=== PATIENT | male | born 1990 | race Caucasian/White ===

== ENCOUNTER 2018-01-23 15:09 | Emergency (ER) | END 2018-01-23 21:05 | disposition home or self-care (01) ==

== ENCOUNTER 2019-01-02 18:44 | Emergency (ER) | payer OTHER ==
[~2019-01-02] VITALS: Wt 69.5 kg
[~2019-01-02 18:44] MED LIST: CLON1TAB13 PO; LEVO500T48 PO; PROP20TA4 PO
[2019-01-02] MEDS ORDERED: ACETAMINOPHEN 325 MG TAB PO ONE (20:30)
--- NOTE | 2019-01-02 21:44 | ERD ---
ER Documentation Chief Complaint Chief Complaint RLQ AP, diarrhea x3wks. constant in nature. no surgical history. HPI 28-year-old male, presents the emergency department, complaining of 3 weeks with persistent right lower quadrant abdominal pain, associated with intermittent episodes with diarrhea, described as nonbloody, nonmucous, sometimes 3 times per day. The patient denies fever, no chills. The pain is described as colicky, intermittent, 4/10. ROS All systems reviewed and are negative except as per history of present illness. Medications Home Meds Active Scripts Acetaminophen* (Tylenol*) 325 Mg Tablet, 2 TAB PO Q6 PRN for PAIN AND OR ELEVATED TEMP, #20 TAB Prov:NICKO RIVAS MD 01/02/19 Ciprofloxacin Hcl* (Ciprofloxacin Hcl*) 250 Mg Tablet, 250 MG PO BID for 3 Days, #6 TAB Prov:NICKO RIVAS MD 01/02/19 Levofloxacin* (Levaquin*) 500 Mg Tablet, 500 MG PO DAILY for 10 Days, TAB Prov:ISABEL FERNÁNDEZ MD 01/23/18 Reported Medications Propranolol Hcl* (Propranolol Hcl*) 20 Mg Tablet, 20 MG PO BID, TAB 01/23/18 Clonazepam* (Clonazepam*) 1 Mg Tablet, 1 MG PO BID PRN for ANXIETY, TAB 01/23/18 Allergies Allergies: Coded Allergies: diphenhydramine (Verified Allergy, Unknown, 01/23/18) metoclopramide (Verified Allergy, Unknown, 01/23/18) PMhx/Soc Medical and Surgical Hx: pt denies Medical Hx, pt denies Surgical Hx History of Surgery: No Anesthesia Reaction: No Hx Neurological Disorder: No Hx Respiratory Disorders: No Hx Cardiac Disorders: No Hx Psychiatric Problems: Yes (Schizophrenia) Hx Miscellaneous Medical Probl: Yes (Epididymitis) Hx Alcohol Use: No Hx Substance Use: Yes (Marijuana) Hx Tobacco Use: No Smoking Status: Never smoker FmHx Family History: No diabetes, No coronary disease Physical Exam Vitals Vital Signs Date Temp Pulse Resp B/P (MAP) Pulse Ox O2 O2 Flow FiO2 Time Delivery Rate 01/02/19 98.0 65 20 97/59 (72) 97 Room Air 22:15 01/02/19 98.1 85 20 129/63 100 18:47 (85) Physical Exam Const: No acute distress Head: Atraumatic Eyes: Normal Conjunctiva ENT: Normal External Ears, Nose and Mouth. Neck: Full range of motion. No meningismus. Resp: Clear to auscultation bilaterally Cardio: Regular rate and rhythm, no murmurs Abd: Soft, mild tenderness to deep palpation in the right lower quadrant, no definitive peritoneal signs, normal bowel sounds Skin: No petechiae or rashes Back: No midline or flank tenderness Ext: No cyanosis, or edema Neur: Awake and alert Psych: Normal Mood and Affect Result Diagram: 01/02/19203101/02/192031 Results 24 hrs Laboratory Tests Test 01/02/19 20:32 White Blood Count 2.8 10^3/ul Red Blood Count 4.29 10^6/ul Hemoglobin 12.5 g/dl Hematocrit 36.8 % Mean Corpuscular Volume 85.8 fl Mean Corpuscular Hemoglobin 29.1 pg Mean Corpuscular Hemoglobin Concent 34.0 g/dl Red Cell Distribution Width 12.7 % Platelet Count 166 10^3/UL Mean Platelet Volume 10.3 fl Immature Granulocytes % 0.400 % Neutrophils % 63.3 % Lymphocytes % 26.4 % Monocytes % 9.2 % Eosinophils % 0.7 % Basophils % 0.0 % Nucleated Red Blood Cells % 0.0 /100WBC Immature Granulocytes # 0.010 10^3/ul Neutrophils # 1.8 10^3/ul Lymphocytes # 0.8 10^3/ul Monocytes # 0.3 10^3/ul Eosinophils # 0.0 10^3/ul Basophils # 0.0 10^3/ul Nucleated Red Blood Cells # 0.0 10^3/ul Urine Color YELLOW Urine Clarity CLEAR Urine pH 6.0 Urine Specific [place] 1.020 Urine Ketones NEGATIVE mg/dL Urine Nitrite NEGATIVE mg/dL Urine Bilirubin NEGATIVE mg/dL Urine Urobilinogen NEGATIVE mg/dL Urine Leukocyte Esterase NEGATIVE Neo/ul Urine Hemoglobin NEGATIVE mg/dL Urine Glucose NEGATIVE mg/dL Urine Total Protein NEGATIVE mg/dl Sodium Level 141 mmol/L Potassium Level 4.4 mmol/L Chloride Level 101 mmol/L Carbon Dioxide Level 33 mmol/L Anion Gap 7 Blood Urea Nitrogen 17 mg/dl Creatinine 0.93 mg/dl Est Glomerular Filtrat Rate mL/min > 60 mL/min Glucose Level 88 mg/dl Calcium Level 9.2 mg/dl Total Bilirubin 0.3 mg/dl Direct Bilirubin 0.00 mg/dl Indirect Bilirubin 0.3 mg/dl Aspartate Amino Transf (AST/SGOT) 29 IU/L Alanine Aminotransferase (ALT/SGPT) 33 IU/L Alkaline Phosphatase 68 IU/L Total Protein 7.9 g/dl Albumin 4.3 g/dl Globulin 3.60 g/dl Albumin/Globulin Ratio 1.19 Lipase 48 U/L Current Medications Medications Dose Sig/Sharon Start Time Status Last (Trade) Ordered Route PRN Stop Time Admin Dose Reason Admin 650 mg ONCE ONCE 01/02/19 DC 01/02/19 Acetaminophen PO 20:30 20:31 (Tylenol 01/02/19 20:31 Tab) Patient: COLE CHATMAN : 1990 Age: 28 Sex: M MR #: [id number] DOS: 01/02/192021 Ordering MD: NICKO RIVAS MD Location: [facility] Room/Bed: PROCEDURE: CT Abdomen and Pelvis without contrast. CLINICAL INDICATION: Abdominal pelvic pain. RLQ pain. TECHNIQUE: CT scan of the abdomen and pelvis without contrast was performed on a multi-detector high-resolution CT scanner. The patient was scanned without IV contrast. Coronal and sagittal reformatted images were obtained from the axial source images. DICOM images are available. CTDI equals 5.99 mGy, and DLP equals 373.44 mGy-cm. One or more of the following dose reduction techniques were used: - Automated exposure control. - Adjustment of the mA and/or kV according to patient size. - Use of iterative reconstruction technique. COMPARISON: None. FINDINGS: Lower thorax: Normal. Liver: Normal. No focal mass. Biliary: Normal gallbladder. No biliary dilatation. Pancreas: Normal. Spleen: Normal. Adrenal Glands: Normal. Genitourinary: Normal. Gastrointestinal: Normal, with normal appendix. Lymph nodes: Normal. Vascular: Normal. Peritoneum/mesentery: Normal. No free fluid or free air. Reproductive organs: Normal. Musculoskeletal: Normal. IMPRESSION: 1. Normal CT scan abdomen and pelvis. 2. No focal acute inflammatory process. 3. Normal appendix. Procedures/MDM Vital signs stable. Differential diagnosis include but not limited to: UTI, colitis, gastroenteritis, kidney stones, irritable bowel syndrome, inflammatory bowel syndrome, malabsorption syndrome, cholelithiasis, food intolerance, medication side effect, pancreatitis, diverticulitis, bowel obstruction. Physical examination and clinical presentation consistent most likely with gastroenteritis, low suspicion for acute abdomen. During the ED course the patient remained stable, no new complaints. Results and clinical impression discussed with the patient who agrees with management. The patient is stable to be treated outpatient and will be discharged home; some side effects of prescribed medications (headache, rash, nausea, vomiting, diarrhea, drowsiness, habituation, bleeding, hypertension, interactions with other medications) were reviewed. The patient was informed that the evaluation in the emergency department has been done to rule out an acute emergency, therefore, chronic conditions like malignancy or other diseases have not been evaluated; therefore, the patient was instructed to follow up with the primary care provider in the next 48h. If symptoms persist, worsen or new symptoms develop, then patient should return to the ED immediately. Instructions explained and given directly by me to the patient with acknowledgment and demonstrated understanding. Disclaimer: Inadvertent spelling and grammatical errors are likely due to EHR/dictation software use and do not reflect on the overall quality of patient care. Also, please note that the electronic time recorded on this note does not necessarily reflect the actual time of the patient encounter. Departure Diagnosis: Primary Impression: Acute gastroenteritis Condition: Stable Additional Instructions: Thank you very much for allowing us to participate in your care. Your health and safety is our top priority at [facility]. The evaluation in the emergency department has been done to rule out an acute emergency, therefore, chronic conditions like malignancy or other diseases have not been evaluated; therefore, you need to follow up with a primary care provider in the next 48h. If symptoms persist, worsen or new symptoms develop, then patient should return to the ED immediately. Call your primary care doctor TOMORROW for an appointment during the next 2-4 days and bring all the information provided. Have prescriptions filled and follow precisely the directions on the label. If the symptoms get worse and your provider is unavailable, return to the Emergency Department immediately. NICKO RIVAS MD January 02, 2019 21:44
[2019-01-02] MEDS ORDERED: CIPR-193 PO (22:06)
[2019-01-02] MEDS ORDERED: ACET325T33 PO (22:06)
[2019-01-02 22:15] VITALS: BP 97/59; PULSE 65; RESP 20
== END 2019-01-02 22:22 | disposition home or self-care (01) ==
LOC: FTE 18:44
DX: K52.9 Noninfective gastroenteritis and colitis, unspecified (principal)
CPT/HCPCS: 36415; 74176; 80053; 81003; 83690; 85025; Z7502; Z7610